=== PATIENT | female | born 1995 | race Caucasian/White ===

== ENCOUNTER → 2016-03-30 | Outpatient (CLI) | payer OTHER ==
[~2016-03-30] MED LIST: BCPILLS PO
[2016-03-30 12:31] LABS: BASO % 0.2 %; BASO ABS # 0.01 K/uL (0-0.2); COMPLETE YES; EOS % 0.9 %; IG% 0.2 %; LYMPH % 33.1 %; LYMPH ABS # 1.79 K/uL (1.2-3.4); MEAN CELL VOLUME 90.4 fL (80-100); MEAN CORPUSCULAR HEMOGLOBIN 31.3 pg (25-34); MEAN CORPUSCULAR HGB CONC 34.6 g/dl (32-36); MEAN PLATELET VOLUME 10.9 fL (7.4-10.4); MONO % 6.7 %; NEUT % 58.9 %; PLATELET COUNT 206 K/uL (130-400); RED BLOOD COUNT 3.87 M/uL (4.2-5.4)
== END | disposition home or self-care (01) ==
LOC: C.LABBFT 10:17
PROVIDERS: ATTEND Internal Medicine
DX: K90.0 Celiac disease (principal)

== ENCOUNTER → 2016-04-27 | Outpatient (CLI) | payer OTHER ==
--- NOTE | 2016-04-27 14:34 | DIAGNOSTIC IMAGING REPORT ---
LEFT ELBOW 3 VIEWS CLINICAL HISTORY: Left wrist pain. FINDINGS: 3 views of the left elbow are obtained. No prior studies are available for comparison at the time of dictation. The skeletal structures are well mineralized. No fracture is seen. The joint spaces are well-maintained. There is no joint effusion. The overlying soft tissues are within normal limits. IMPRESSION: Unremarkable radiographic assessment of the left elbow. Electronically signed by: Pillo Chahal M.D. 04/27/2016 2:32 PM Dictated Date/Time: 04/27/2016 2:32 PM
--- NOTE | 2016-04-27 14:35 | DIAGNOSTIC IMAGING REPORT ---
RIGHT ELBOW 3 VIEWS CLINICAL HISTORY: Right wrist pain. FINDINGS: 3 views of the right elbow are obtained. No prior studies are available for comparison at the time of dictation. The skeletal structures are well mineralized. No fracture is seen. The joint spaces are well-maintained. There is no joint effusion. The overlying soft tissues are within normal limits. IMPRESSION: Unremarkable radiographic assessment of the right elbow. Electronically signed by: Pillo Chahal M.D. 04/27/2016 2:34 PM Dictated Date/Time: 04/27/2016 2:33 PM
== END | disposition home or self-care (01) ==
LOC: C.RAD1850 13:59
PROVIDERS: ATTEND Internal Medicine
DX: G56.23 Lesion of ulnar nerve, bilateral upper limbs (principal)

== ENCOUNTER → 2017-01-30 | Outpatient (CLI) | payer OTHER ==
[2017-01-30 16:54] LABS: HEMATOCRIT 35.4 % (37-47); MEAN CELL VOLUME 91.7 fL (80-100); MEAN CORPUSCULAR HEMOGLOBIN 31.6 pg (25-34); MEAN CORPUSCULAR HGB CONC 34.5 g/dl (32-36); MEAN PLATELET VOLUME 10.2 fL (7.4-10.4); PLATELET COUNT 238 K/uL (130-400); RED BLOOD COUNT 3.86 M/uL (4.2-5.4); WHITE BLOOD COUNT 5.79 K/uL (4.8-10.8)
[2017-01-30 17:07] LABS: FERRITIN 12.8 ng/ml (8.0-388.0); THYROID STIMULATING HORMONE 1.53 uIu/ml (0.300-4.500)
== END | disposition home or self-care (01) ==
LOC: C.LABBFT 15:19
PROVIDERS: ATTEND Physician Assistant Medical
DX: K90.0 Celiac disease (principal); F41.9 Anxiety disorder, unspecified

== ENCOUNTER 2024-01-27 03:17 | Inpatient (IN) ==
[2024-01-27] MEDS ORDERED: OXYTOCIN 30 UNITS/NSS 30 UNITS/500 ML BAG IV PRN (04:09)
[2024-01-27] MEDS ORDERED: LIDOCAINE 1% LOCAL 20 ML VIAL INFIL PRN (04:09)
[2024-01-27 04:36] LABS: Hematocrit (blood only) 31.6 % (37.0-47.0); Mean Corpuscular Hgb Conc 34.8 g/dL (32.0-36.0); Mean Corpuscular Volume 94.9 fL (80.0-100.0); Mean Platelet Volume 11.1 fL (9.4-12.4); Platelet Count 183 K/uL (130-400); RDW Coefficient of Variation 12.7 % (11.5-14.5); RDW Standard Deviation 44.4 fL (36.4-46.3); Red Blood Count 3.33 M/uL (4.20-5.40); White Blood Count 9.43 K/ul (4.8-10.8)
--- NOTE | 2024-01-27 07:41 | History & Physical Report ---
Date of Service January 27, 2024 Assessment & Plan (1) Supervision of normal first : (2) Bilobed placenta: Plan 28 yo G1 at 38 5/7 wga presents w/ PROM VSS Fetus cat 1 Labor - pt desires to walk and see if ctx will start GBS neg epidural prn Admission and Anticipated Discharge Date Admission Date: January 27, 2024 History of Present Illness Chief Complaint: LOF Primary Care Provider: Anai Jimenez MD 28 yo G1 at 38 5/7 wga presents with PROM. Had large gush of fluid and continued leaking since then. 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 denies hx stis Allergies Allergy/AdvReac Type Severity Reaction Status Date / Time gluten Allergy Severe ABD PAIN Verified 01/27/24 03:39 cephalexin Allergy Unknown childhood Verified 01/27/24 03:39 reaction soy Allergy Unknown ABD PAIN Verified 01/27/24 03:39 Home Medications Medication Instructions Recorded Confirmed Type [id number] acid 1 tab PO DAILY 06/22/23 01/27/24 History [ Multi] Patient History Medical History Anxiety Migraine headache Vitamin D deficiency History of varicella vaccination Surgical History S/P wisdom tooth extraction Family History Mother Anxiety Gluten intolerance Family/Other Alcohol abuse Cardiac disorder Cancer Gluten intolerance Father Hypertension Denies family history of Ovarian cancer Prostate cancer Myocardial infarction Breast cancer Colorectal cancer Uterine cancer Social History (Updated 01/27/24 @ 03:38 by Dagmar Cardenas RN) Smoking Status: Never smoker Second Hand Exposure: Yes; Do You Dip or Chew Tobacco: No; Hx Alcohol Use: Yes Hx Substance Use: No Preferred Language: Arabic Communication Ability: Effective 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: No Beliefs That Will Affect Care: None marital status: marital status details: Otoniel Shine [phone] Current Living Situation: Spouse Current Living Situation Comment: House with lino current occupational status: employed 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 Other Information That Helps Us Care for You: No Feels Safe at Home: Yes Safety Concerns: Feels Safe At This Time Physical Activity Frequency: 1-2 Times per Week Assistive Devices: None Physical Exam Genitourinary: OB Exam Monitor Tracing: + external FHT monitor used, + external uterine monitor used (irreg ctx) and + category I (130/mod/+accel/- decel) Results & Data Vital Signs (Past 12 Hours) Vital Signs Temp Pulse Resp BP O2 Del Method 01/27/24 06:57 80 108/61 01/27/24 06:55 20 01/27/24 06:55 98.1 F 20 01/27/24 05:26 98.2 F 01/27/24 03:39 98.6 F 18 Room Air 01/27/24 03:37 98.6 F 94 H 18 113/68 Laboratory Results OB Labs: Blood Type A Positive 06/29/23 Antibody Screen NEGATIVE 06/29/23 Hgb 11.0 g/dl (12.0-16.0) L 11/14/23 Hct 32.9 % (37.0-47.0) L 11/14/23 MCV 91.8 fL (80.0-100.0) 06/29/23 Plt Count 221 K/uL (130-400) 06/29/23 Rubella IgG Antibody Immune (Immune) 06/29/23 RPR Nonreactive (Nonreactive) 06/29/23 Treponema pallidum Ab Negative (Negative) 11/14/23 Hep Bs Antigen NON-REACTIVE (NON-REACTIVE) 06/29/23 Hepatitis C Ab (EIA) NON-REACTIVE (NON-REACTIVE) 06/29/23 HIV (1&2) Ag & Ab Conf NON-REACTIVE (NON-REACTIVE) 06/29/23 Glucose 1 Hr 50 gm 99 mg/dl (70-130) 11/14/23 Maternal Serum AFP 51.3 ng/mL 08/24/23 OB Optional Labs: Chlamydia trachomatis RNA Not Detected (NotDetected) 06/29/23 Neisseria gonorrhoeae RNA Not Detected (NotDetected) 06/29/23 Thyroid Stimulating Hormone (TSH) 1.530 uIu/ml (0.300-4.500) 01/30/17 Alpha Fetoprotein Triple Screen SEE NOTE 08/24/23 Labs Reviewed: Horizon 14-negative--mln low risk cfDNA smp neg msafp smp GBS neg Diagnostic Findings 01/07 EFW 72%, ant plac w/ lobe post Coding Level of Care Code None Diagnoses Supervision of normal first Z34.00 Bilobed placenta O43.199
--- NOTE | 2024-01-27 08:36 | Labor Progress Brief Note ---
Date of Service January 27, 2024 Subjective starting to feel more Assessment & Plan (1) Supervision of normal first : (2) Bilobed placenta: Plan 28 yo G1 at 38 5/7 wga presents w/ PROM VSS Fetus cat 1 Labor - progress noted, feels cramping worse but still manageable, not quite ready for epidural. Desires to continue walking GBS neg epidural prn Admission and Anticipated Discharge Date Admission Date: January 27, 2024 Physical Exam Genitourinary: Manual OB Exam: + cervical dilation 3 cm, + cervical effacement 50% and + station -2 OB Exam Monitor Tracing: + external FHT monitor used, + external uterine monitor used (q6) and + category I (130/mod/+accel/-decel) Results & Data Vital Signs (Past 12 Hours) Vital Signs Temp Pulse Resp BP O2 Del Method 01/27/24 06:57 80 108/61 01/27/24 06:55 20 01/27/24 06:55 98.1 F 20 01/27/24 05:26 98.2 F 01/27/24 03:39 98.6 F 18 Room Air 01/27/24 03:37 98.6 F 94 H 18 113/68 Coding Level of Care Code None Diagnoses Supervision of normal first Z34.00 Bilobed placenta O43.199
[2024-01-27] MEDS: LACTATED RINGER'S 1,000 ML IV SCH (12:39)
[2024-01-27] MEDS: OXYTOCIN 30 UNITS/NSS 30 UNITS/500 ML BAG IV PRN (12:46)
--- NOTE | 2024-01-27 12:56 | Labor Progress Brief Note ---
Date of Service January 27, 2024 Subjective ctx slightly worse, frequent Assessment & Plan (1) Supervision of normal first : (2) Bilobed placenta: Plan 28 yo G1 at 38 5/7 wga presents w/ PROM VSS Fetus cat 1 Labor - small progress seen. Discussed use of pitocin, pt agreeable. GBS neg epidural prn Admission and Anticipated Discharge Date Admission Date: January 27, 2024 Physical Exam Genitourinary: Manual OB Exam: + cervical dilation (3-4), + cervical effacement 70% and + station -2 OB Exam Monitor Tracing: + external FHT monitor used, + external uterine monitor used (q6) and + category I (130/mod/+accel/-decel) Results & Data Vital Signs (Past 12 Hours) Vital Signs Temp Pulse Resp BP O2 Del Method 01/27/24 10:58 98.1 F 74 18 108/71 01/27/24 08:41 18 01/27/24 08:41 98.2 F 18 01/27/24 06:57 80 108/61 01/27/24 06:55 20 01/27/24 06:55 98.1 F 20 01/27/24 05:26 98.2 F 01/27/24 03:39 98.6 F 18 Room Air 01/27/24 03:37 98.6 F 94 H 18 113/68 Coding Level of Care Code None Diagnoses Supervision of normal first Z34.00 Bilobed placenta O43.199
--- NOTE | 2024-01-27 14:18 | Anesthesiology Consultation ---
Date of Service January 27, 2024 Assessment & Plan (1) Encounter for pre-operative examination: Chart Review Chart Review: Acceptable Risk for Labor Epidural History Height/Weight Height: 5 ft 5 in Weight: 77.111 kg Allergies Allergy/AdvReac Type Severity Reaction Status Date / Time gluten Allergy Severe ABD PAIN Verified 01/27/24 03:39 cephalexin Allergy Unknown childhood Verified 01/27/24 03:39 reaction soy Allergy Unknown ABD PAIN Verified 01/27/24 03:39 Medications Home Medications Medication Instructions Recorded Confirmed Last Taken [id number]-[id number] acid 1 tab PO DAILY 06/22/23 01/27/24 01/26/24 [ Multi] Active Medications Generic Name Dose Route Start Last Admin Trade Name Freq PRN Reason Stop Dose Admin Lactated Ringer's 1,000 mls @ 50 mls/hr 01/27/24 04:45 01/27/24 14:08 Lr IV 01/28/24 04:44 999 mls/hr .Q20H FARRUKH Infusion Oxytocin 30 units in 500 mls @ 4 mls/hr 01/27/24 12:35 01/27/24 13:30 Pitocin 30 Units/Nss IV 01/29/24 12:34 0.24 units/hr .Q24H PRN 4 mls/hr Labor Induction/Augmentation Titration Protocol 0.24 UNITS/HR Past Medical History Medical History History of varicella vaccination Past Family History Family History Mother Anxiety Gluten intolerance Family/Other Alcohol abuse Cardiac disorder Cancer Gluten intolerance Father Hypertension Denies family history of Ovarian cancer Prostate cancer Myocardial infarction Breast cancer Colorectal cancer Uterine cancer Past Surgical History Surgical History S/P wisdom tooth extraction Social History Smoking Status: Never smoker Do You Dip or Chew Tobacco: No Hx Alcohol Use: Yes Hx Substance Use: No Physical Exam Vital Signs Last Vital Signs Temp 36.6 C 01/27/24 13:30 Pulse 85 01/27/24 13:30 Resp 16 01/27/24 13:30 BP 112/62 01/27/24 13:30 O2 Del Method Room Air 01/27/24 03:39 Testing Laboratory Results 01/27/24 04:20
[2024-01-27] MEDS: fentANYL 2 MCG/ML BUPIVacaine 0.125%-NSS 100ML BAG ONE (14:43)
[2024-01-27] MEDS: fentaNYL citrate PF 100 MCG/2 ML VIAL ONE (14:47)
[2024-01-27] MEDS ORDERED: SODIUM CHLORIDE 0.9% PF INJ 10 ML VIAL EPI PRN (14:47)
[2024-01-27] MEDS ORDERED: fentaNYL citrate PF 100 MCG/2 ML VIAL EPI PRN (14:47)
[2024-01-27] MEDS ORDERED: LIDOCAINE 2% MPF LOCAL 5 ML VIAL EPI PRN (14:47)
[2024-01-27] MEDS ORDERED: NALOXONE HCL 1 MG in SODIUM CHLORIDE 0.9% 1,000 ML IV PRN (14:47)
[2024-01-27] MEDS ORDERED: ePHEDrine sulfate 50 MG/ML AMP IV PRN (14:47)
[2024-01-27] MEDS ORDERED: NALOXONE HCL 0.4 MG/1 ML VIAL/CARP IV PRN (14:47)
[2024-01-27] MEDS ORDERED: ONDANSETRON INJ 2 MG/ML 2 ML VIAL IV PRN (14:47)
[2024-01-27] MEDS ORDERED: BUPIVACAINE 0.25% PF 30 ML VIAL EPI PRN (14:47)
[2024-01-27] MEDS ORDERED: ROPIVACAINE 0.5% PF 5 MG/ML 20 ML VIAL EPI PRN (14:47)
[2024-01-27] MEDS: LIDOCAINE 2%/EPINEPHRINE 1:200,000 20 ML PF ONE (14:51)
[2024-01-27] MEDS: BUPIVACAINE 0.25% PF 30 ML VIAL ONE (14:52)
[2024-01-27] MEDS: SODIUM CHLORIDE 0.9% PF INJ 10 ML VIAL ONE (14:53)
[2024-01-27] MEDS: LIDOCAINE 2%/EPINEPHRINE 1:200,000 20 ML PF EPI STA (15:13)
[2024-01-27] MEDS: SODIUM CHLORIDE 0.9% PF INJ 10 ML VIAL EPI STA (15:13)
[2024-01-27] MEDS: BUPIVACAINE 0.25% PF 30 ML VIAL EPI STA (15:13)
[2024-01-27] MEDS: fentaNYL citrate PF 100 MCG/2 ML VIAL EPI STA (15:13)
--- NOTE | 2024-01-27 17:35 | Labor Progress Brief Note ---
Date of Service January 27, 2024 Subjective comfortable w/ epidural Assessment & Plan (1) Supervision of normal first : (2) Bilobed placenta: Plan 28 yo G1 at 38 5/7 wga presents w/ PROM VSS Fetus cat 1 Labor - pit at 12, good progress. Continue augmentation GBS neg epidural in place Admission and Anticipated Discharge Date Admission Date: January 27, 2024 Physical Exam Genitourinary: Manual OB Exam: + cervical dilation 5 cm, + cervical effacement 70% and + station -1 OB Exam Monitor Tracing: + external FHT monitor used, + external uterine monitor used (q4-5) and + category I (130/mod/+accel/-decel) Results & Data Vital Signs (Past 12 Hours) Vital Signs Temp Pulse Resp BP Pulse Ox 01/27/24 17:30 83 100 01/27/24 17:28 83 116/73 01/27/24 17:25 91 H 100 01/27/24 17:20 85 100 01/27/24 17:15 79 99 01/27/24 17:13 86 110/65 01/27/24 17:10 88 99 01/27/24 17:05 90 99 01/27/24 17:00 84 100 01/27/24 16:58 84 108/64 01/27/24 16:55 81 98 01/27/24 16:50 81 98 01/27/24 16:45 82 98 01/27/24 16:43 80 109/64 01/27/24 16:40 84 99 01/27/24 16:35 81 99 01/27/24 16:30 94 H 99 01/27/24 16:28 94 H 108/60 01/27/24 16:25 76 97 01/27/24 16:20 85 97 01/27/24 16:15 80 97 01/27/24 16:14 79 108/62 01/27/24 16:10 86 97 01/27/24 16:05 88 96 01/27/24 16:00 93 H 98 01/27/24 15:58 81 16 100/57 L 01/27/24 15:55 82 96 01/27/24 15:50 73 96 01/27/24 15:45 84 96 01/27/24 15:44 78 100/57 L 01/27/24 15:40 75 96 01/27/24 15:35 77 96 01/27/24 15:30 77 96 01/27/24 15:28 80 16 102/59 L 01/27/24 15:25 75 97 01/27/24 15:20 75 96 01/27/24 15:15 77 97 01/27/24 15:13 75 100/56 L 01/27/24 15:10 82 98 01/27/24 15:05 91 H 01/27/24 15:01 16 01/27/24 15:01 98.2 F 16 01/27/24 15:00 90 99 01/27/24 14:56 91 H 113/63 01/27/24 14:55 86 100 01/27/24 14:50 100 01/27/24 14:50 92 H 01/27/24 14:50 87 107/61 01/27/24 14:48 99 H 116/66 01/27/24 14:46 84 111/61 01/27/24 14:45 86 100 01/27/24 14:44 82 109/61 01/27/24 14:42 91 H 113/66 01/27/24 14:40 100 01/27/24 14:40 91 H 01/27/24 14:40 91 H 107/66 01/27/24 14:35 105 H 99 01/27/24 13:30 97.9 F 85 16 112/62 01/27/24 10:58 98.1 F 74 18 108/71 01/27/24 08:41 18 01/27/24 08:41 98.2 F 18 01/27/24 06:57 80 108/61 01/27/24 06:55 20 01/27/24 06:55 98.1 F 20 Coding Level of Care Code None Diagnoses Supervision of normal first Z34.00 Bilobed placenta O43.199
[2024-01-27] MEDS ORDERED: NURSING L&D Epidural Breakthrough Pain Update ONE (20:36)
[2024-01-27] MEDS: fentANYL 2 MCG/ML BUPIVacaine 0.125%-NSS 100ML BAG EPI PRN (22:38)
--- NOTE | 2024-01-28 01:21 | Delivery Summary ---
Vaginal Delivery Summary Date of Service January 28, 2024 Vaginal Delivery Summary [facility] PREOPERATIVE DIAGNOSIS: 1. Single intrauterine at 38 6/7 wga 2. SROM 3. Bilobed placenta POSTOPERATIVE DIAGNOSIS: 1. Single intrauterine at 38 6/7 wga 2. SROM 3. Bilobed placenta 4. Delivered PROCEDURE: 1. Normal spontaneous vaginal delivery. SURGEON: Kimberly Dennis MD ANESTHESIA: Epidural. QUANTITATIVE BLOOD LOSS: 315 mL FLUIDS: Continuous LR. URINE OUTPUT: None. COMPLICATIONS: None. CONDITION: Stable. INDICATIONS: 28 yo G1 at 38 6/7 wga presented with SROM and 1.5cm. She progressed spontaneously to 3-4cm then required pitocin for augmentation. She received an epidural for pain control and progressed to complete and desired to push. FINDINGS: A viable female infant, weight pending with Apgars of 9 and 9 at 1 and 5 minutes respectively. SPECIMEN: Cord blood, placenta OPERATIVE REPORT: The patient progressed to 10 cm, 100% effaced and +2 station, pushed over intact perineum with anesthesia to deliver a viable female , weight and Apgars as above. Head of delivered in TIESHA position. No nuchal cord was present. Body and shoulders were delivered without difficulty. was delivered to maternal abdomen and nursing staff. Delayed cord clamping was performed for 60 seconds. Cord was clamped and cut. Cord blood was obtained. Placenta did not deliver after 20min, however there started to be heavier bleeding so manual extraction was performed for intact placenta that appeared to be bilobed. Additional sweep was performed to confirm no retained placenta. IV oxytocin and fundal massage were given for excellent hemostasis. Vagina, cervix, perineum, and placenta were inspected. A small laceration at the right hymenal ring was repaired using 3-0 vicryl in a figure of eight stitch. There was excellent hemostasis. Sponge and needle counts correct x2. No sponges were left behind. Mother and stable in immediate period. [facility] Vaginal Delivery Charge Vaginal Delivery Codes: 65288 global code for the antepartum, delivery, and post- Delivery Type Details: [facility]
[2024-01-28] MEDS ORDERED: OXYTOCIN 30 UNITS/NSS 30 UNITS/500 ML BAG IV PRN (01:25)
[2024-01-28] MEDS ORDERED: HYDROCORTISONE ACETATE 25 MG SUPP PR PRN (01:25)
[2024-01-28] MEDS ORDERED: bisacodyL 10 MG SUPP PR PRN (01:25)
[2024-01-28] MEDS: CLINDAMYCIN/D5W 900 MG/50 ML BAG IV SCH (01:39)
[2024-01-28] MEDS: ACETAMINOPHEN 325 MG TAB PO PRN (03:33)
[2024-01-28] MEDS: BENZOCAINE 20% SPRY 85 APPLN/85 GM CAN EXT PRN (03:33)
[2024-01-28] MEDS: DIPHTHER/TETAN/PERTUS Vaccine (Tdap, Adol/Adult) 0.5mL IM ONE (03:53)
[2024-01-28] MEDS: ePHEDrine sulfate 50 MG/ML AMP ONE (03:53)
[2024-01-28] MEDS: IBUPROFEN 600 MG TAB PO PRN (06:19)
[2024-01-28] MEDS: PRENATAL VITAMIN 1 TAB PO SCH (08:33)
[2024-01-28] MEDS: DOCUSATE SODIUM 100 MG CAP PO SCH (08:33)
[2024-01-28] MEDS: FERROUS SULFATE 325 MG TAB PO SCH (08:33)
--- NOTE | 2024-01-28 09:14 | Anesthesia Procedure Note ---
Date of Service January 28, 2024 Anesthesia Post Epidural Note Vital Signs Vital Signs: Temp Pulse Resp BP Pulse Ox O2 Del Method 36.5 C 88 16 108/66 98 Room Air 01/28/24 07:05 01/28/24 07:05 01/28/24 07:05 01/28/24 07:05 01/28/24 07:05 01/28/24 07:05 Pain Intensity Lower Abdomen: Pain Intensity: 2 Notes Mental Status: alert / awake / arousable Nausea / Vomiting: adequately controlled Pain: adequately controlled Airway Patency, RR, SpO2: stable & adequate BP & HR: stable & adequate Hydration State: stable & adequate Neuraxial Anesthesia: was administered and sensory block is resolving Anesthetic Complications: no major complications apparent and Pt Satisfied with anesthetic care Epidural: Removed without complications and With tip intact
--- NOTE | 2024-01-29 06:39 | Obstetrical Progress Note ---
Date of Service <Luis Alberto Gregory MD - Last Filed: 01/29/24 07:40> January 29, 2024 Assessment & Plan <Luis Alberto Gregory MD - Last Filed: 01/29/24 07:40> (1) Supervision of normal first : (2) care and examination: Plan PPD#1 s/p term : Stable. Rh+, gbs-, ri, vitals wnl Continue routine care, continue OOB and ambulation, diet as tolerated DC later today <Yokasta Joaquin MD, FACOG - Last Filed: 01/29/24 07:41> (1) Supervision of normal first : (2) care and examination: Subjective <Luis Alberto Gregory MD - Last Filed: 01/29/24 07:40> Radha is a 28 y/o female who is PPD#1 following at term. Reports minimal abd pain/cramping, no issues w voiding, eating, ambulating Having appropriate lochia Planning for exclusive . Constitutional: no fever, no chills or no sweats Respiratory: no dyspnea Cardiovascular: no chest pain, no palpitations or no calf pain Breast: no breast pain Gastrointestinal: no nausea or no vomiting Genitourinary (female): no dysuria Neurologic: no headache(s) no changes in vision, no headaches Physical Exam <Luis Alberto Gregory MD - Last Filed: 01/29/24 07:40> General: Alert, oriented. No acute distress. Cardiac: Regular rate and rhythm, no murmurs, rubs, or gallops. Respiratory: Clear to auscultation bilaterally. No increased work of breathing. Symmetrical chest rise. No respiratory distress. Abdomen: Soft, nontender, nondistended. Bowel sounds present. Uterus: Uterine fundus firm, nontender Lower extremities: No lower extremity edema or swelling. No deep calf pain. Results & Data <Luis Alberto Gregory MD - Last Filed: 01/29/24 07:40> Vital Signs (Past 12 Hours) Vital Signs Temp Pulse Resp BP Pulse Ox O2 Del Method 01/29/24 00:00 36.8 C 83 16 104/64 97 Room Air 01/28/24 19:30 36.7 C 96 H 18 103/67 98 Room Air Supervising Physician <Yokasta Joaquin MD, FACOG - Last Filed: 01/29/24 07:41> Co-Signing Physician Notes Resident Physician Supervision Note: I interviewed and examined the patient. Discussed with Dr. Gregory and agree with findings and plan as documented in the note. Any exceptions or clarifications are listed here: [None] Documented By: Yokasta Joaquin MD, FACOG Resident Activity Tracking <Luis Alberto Gregory MD - Last Filed: 01/29/24 07:40> Resident Involvement: Resident Care Provided Care Provided: Adult Hospital Medicine and OB Delivery
[2024-01-29 07:27] VITALS: BP 100/64; PULSE 85; RESP 18; TEMP 97.7; O2SAT 98
[2024-01-29] MEDS ORDERED: bisacodyL 5 MG TABEC PO SCH (20:00)
== END 2024-01-29 14:55 | disposition home or self-care (01) | DRG 768 ==
LOC: OPB 03:17 → 4S1 03:19 → 4E2 01-28 03:54